=== PATIENT | female | born 1975 | race Caucasian/White ===

== ENCOUNTER → 2017-02-16 | Outpatient (CLI) | payer OTHER ==
--- NOTE | 2017-02-16 11:45 | RAD ---
Pelvic ultrasound, 02/16/2017: History: Pelvic pain Transabdominal and transvaginal scans were obtained. The uterus measures 8 x 5 x 4 cm. An IUD is present in the central uterine cavity. The central uterine echo complex is otherwise unremarkable. Small nabothian cysts are present in the cervical region. The ovaries are of normal size. There is a 1.4 cm simple cyst in the right ovary. A 1.1 cm simple cyst is present in the left ovary. Blood flow is present in both ovaries. No adnexal mass is seen. A trace amount of free fluid is present in the pelvis. This amount of fluid can be on a physiologic basis. IMPRESSION: 1. An IUD is in place in the central uterine cavity.. 2. Small bilateral functional ovarian cysts. 3. Trace amount of free fluid in the pelvis.
== END | disposition home or self-care (01) ==
LOC: US 05:42
PROVIDERS: ATTEND Obstetrics & Gynecology
DX: N83.201 Unspecified ovarian cyst, right side (principal); R10.2 Pelvic and perineal pain; N83.202 Unspecified ovarian cyst, left side
CPT/HCPCS: 76830; 76856

== ENCOUNTER → 2018-12-24 | Outpatient (CLI) | payer OTHER ==
[2018-12-24 12:41] LABS: BASO % 1 % (0-3); EOS % 0 % (0-3); HEMATOCRIT 45.5 % (36.0-47.0); HEMOGLOBIN 15.4 g/dL (12.0-15.5); LYMPH % 33 % (24-48); MEAN CORPUSCULAR HEMOGLOBIN 31 pg (25-35); MEAN CORPUSCULAR HGB CONC 34 g/dL (31-37); MEAN CORPUSCULAR VOLUME 90 fL (79-100); MONO # 0.4 x10^3/uL (0.0-1.1); MONO % 7 % (0-9); NEUT # 3.5 x10^3uL (1.8-7.7); NEUT % 59 % (31-73); PLATELET COUNT 209 x10^3/uL (140-400); RED BLOOD COUNT 5.04 x10^6/uL (3.50-5.40); RED CELL DISTRIBUTION WIDTH 13.3 % (11.5-14.5); WHITE BLOOD COUNT 5.9 x10^3/uL (4.0-11.0)
[2018-12-24 12:51] LABS: ALBUMIN 4.3 g/dL (3.4-5.0); ALBUMIN/GLOBULIN RATIO 1.3 (1.0-1.7); CALCIUM 9.2 mg/dL (8.5-10.1); CREATININE 0.7 mg/dL (0.6-1.0); GFR 90.9; POTASSIUM 4.1 mmol/L (3.5-5.1); TOTAL BILIRUBIN 0.6 mg/dL (0.2-1.0); TOTAL PROTEIN 7.7 g/dL (6.4-8.2)
[2018-12-24 13:45] LABS: SEDIMENTATION RATE 9 (0-25)
[2018-12-25 02:07] LABS: RHEUMATOID FACTOR <10.0 IU/mL (0.0-13.9)
--- NOTE | 2018-12-25 08:18 | RAD ---
DATE: 12/24/2018 2:00 AM EXAM: MAMMO JESSIKA SCREENING BILATERAL HISTORY: routine screening evaluation. COMPARISON: Prior mammographic imaging 06/14/2016 Bilateral CC and MLO views of the breasts were performed. Bilateral breast tomosynthesis was performed in CC and MLO projections. This study was interpreted with the benefit of Computerized Aided Detection (CAD ). Breast Density: The breast parenchyma is dense, which could reduce the sensitivity of mammography. Breast parenchyma level density D. FINDINGS: The parenchymal pattern appears stable. No suspicious masses, microcalcifications or architectural distortion is present to suggest malignancy in either breast. The visualized axillae are unremarkable. IMPRESSION: No mammographic evidence of malignancy. BI-RADS CATEGORY: 1 NEGATIVE RECOMMENDED FOLLOW-UP: 12M 12 MONTH FOLLOW-UP Annual screening mammography is recommended, unless clinically indicated sooner based on symptoms or change in physical exam. PQRS compliance statement: Patient information was entered into a reminder system with a target due date 12/26/2019 for the next mammogram. Mammography is a sensitive method for finding small breast cancers, but it does not detect them all and is not a substitute for careful clinical examination. A negative mammogram does not negate a clinically suspicious finding and should not result in delay in biopsying a clinically suspicious abnormality. "Our facility is accredited by the [employer] Mammography Program." JEAN CLAUDED
[2018-12-25 20:39] LABS: FREE T4 1.05 ng/dL (0.76-1.46); THYROID STIM HORMONE (TSH) 1.918 uIU/mL (0.358-3.740)
[2018-12-26 19:10] LABS: ANA INTERP Negative (.)
== END | disposition home or self-care (01) ==
LOC: LAB 12:11
PROVIDERS: ATTEND Physician Assistant Medical
DX: Z12.31 Encounter for screening mammogram for malignant neoplasm of breast (principal); H35.60 Retinal hemorrhage, unspecified eye
CPT/HCPCS: 36415; 77063; 77067; 80053; 80061; 84439; 84443; 85025; 85651; 86038; 86431

== ENCOUNTER → 2020-05-05 | Outpatient (CLI) | payer OTHER | END | disposition home or self-care (01) | LOC: LAB 18:01 | PROVIDERS: ATTEND Internal Medicine Cardiovascular Disease | DX: Z20.828 Contact with and (suspected) exposure to other viral communicable diseases (principal) | CPT/HCPCS: 36415; U0003-CS ==

== ENCOUNTER → 2020-05-12 | Outpatient (CLI) | payer OTHER | END | disposition home or self-care (01) | LOC: LAB 11:57 | PROVIDERS: ATTEND Internal Medicine Cardiovascular Disease | DX: Z20.828 Contact with and (suspected) exposure to other viral communicable diseases (principal) | CPT/HCPCS: C9803; U0003; 36415 ==

== ENCOUNTER → 2021-06-20 | Outpatient (CLI) | payer OTHER ==
[2021-06-20 12:51] LABS: BASO % 1 % (0-3); EOS % 1 % (0-3); HEMATOCRIT 37.8 % (36.0-47.0); HEMOGLOBIN 12.9 g/dL (12.0-15.5); LYMPH # 1.8 x10^3/uL (1.0-4.8); LYMPH % 34 % (24-48); MEAN CORPUSCULAR HEMOGLOBIN 31 pg (25-35); MEAN CORPUSCULAR HGB CONC 34 g/dL (31-37); MEAN CORPUSCULAR VOLUME 91 fL (79-100); MONO # 0.5 x10^3/uL (0.0-1.1); MONO % 10 % (0-9); NEUT # 2.9 x10^3uL (1.8-7.7); NEUT % 55 % (31-73); PLATELET COUNT 250 x10^3/uL (140-400); RED BLOOD COUNT 4.16 x10^6/uL (3.50-5.40); RED CELL DISTRIBUTION WIDTH 12.7 % (11.5-14.5); WHITE BLOOD COUNT 5.3 x10^3/uL (4.0-11.0)
[2021-06-20 13:12] LABS: ALBUMIN 3.4 g/dL (3.4-5.0); ALBUMIN/GLOBULIN RATIO 1.1 (1.0-1.7); CALCIUM 7.7 mg/dL (8.5-10.1); CREATININE 0.6 mg/dL (0.6-1.0); GFR 107.2; POTASSIUM 4.5 mmol/L (3.5-5.1); TOTAL BILIRUBIN 0.5 mg/dL (0.2-1.0); TOTAL PROTEIN 6.6 g/dL (6.4-8.2)
[2021-06-20 17:07] LABS: FREE T4 0.93 ng/dL (0.76-1.46)
[2021-06-20 17:08] LABS: THYROID STIM HORMONE (TSH) 1.842 uIU/mL (0.358-3.740)
== END ==
LOC: LAB 11:18
PROVIDERS: ATTEND Physician Assistant Medical
DX: Z00.00 Encounter for general adult medical examination without abnormal findings (principal); R09.81 Nasal congestion; R63.5 Abnormal weight gain; Z82.49 Family history of ischemic heart disease and other diseases of the circulatory system
CPT/HCPCS: 36415; 80053; 80061; 84439; 84443; 85025

== ENCOUNTER → 2021-10-07 | Outpatient (CLI) | payer OTHER ==
--- NOTE | 2021-10-07 16:55 | RAD ---
Bilateral digital screening 2-D and 3-D (tomosynthesis) mammogram: Reason for examination: Routine screening. Comparison is made to mammograms from 12/24/2018. Bilateral mammograms in CC and oblique projections were obtained with 2-D imaging and 3-D tomosynthes is imaging and reviewed on the workstation. Interpretation was made with the benefit of CAD. Findings: Breast density: Category C. The breasts are heterogeneously dense, which may obscure small masses. There are no suspicious masses, malignant appearing calcifications or architectural distortion. Impression: No evidence of malignancy. ASSESSMENT: BI-RADS 1. Negative. Recommendations: Routine screening mammograms. This patient's information has been entered into a reminder system for the patient to be notified wit h the results of her examination and a target date for the next mammogram. Your patient's mammogram demonstrates that she has dense breast tissue (breast density category C or D), which could hide abnormalities, and if she has other risk factors for breast cancer that have bee n identified, she might benefit from supplemental screening tests that may be suggested by you as her ordering physician. Dense breast tissue, in and of itself, is a relatively common condition. Therefo re, this information is not provided to cause undue concern, but rather to raise your awareness and t o promote discussion with your patient regarding the presence of other risk factors, in addition to d ense breast tissue. Electronically signed by: Antionette Coffey MD (10/07/2021 4:52 PM) [id number]
== END ==
LOC: MAMMO 12:39
PROVIDERS: ATTEND Physician Assistant Medical
DX: Z12.31 Encounter for screening mammogram for malignant neoplasm of breast (principal)
CPT/HCPCS: 77063; 77067